=== PATIENT | female | born 1980 | race Caucasian/White ===

== ENCOUNTER 2019-05-19 15:24 | Outpatient (CLI) | payer BC | END 2019-05-19 23:59 | disposition home or self-care (01) | LOC: CARD 15:24 | DX: J45.30 Mild persistent asthma, uncomplicated (principal); J30.9 Allergic rhinitis, unspecified; B07.9 Viral wart, unspecified; L71.9 Rosacea, unspecified; Q82.8 Other specified congenital malformations of skin | CPT/HCPCS: 94060; 94726; 94729 ==

== ENCOUNTER 2019-10-02 07:35 | Inpatient (IN) | payer BC ==
[~2019-10-02] VITALS: Ht 160 cm; Wt 67.0 kg
[~2019-10-02 07:35] MED LIST: [UNRECOGNIZED DRUG - REMARK]
--- NOTE | 2019-10-02 08:23 | NUR ---
LATE ENTRY, PT FROM TRIAGE VIA WHEELCHAIR S/P ABDOMINAL PLASTY ON 09/28, SUDDEN ONSET SOB. PT HAS HX OF ASTHMA AND USED HER INHALLERS AND A BREATHING TREATMENT W/O IMPROVEMENT. RPT RA PULSE OX AT HOME OF 60%. PT PLACED IN GOWN AND ALL MONITORS IN PLACE. PIV EST ABD LABS DRAWN. 02 AT 4L NC WITH SPO2 = 91% RESPIRATIONS 28 AND SHALLOW. POSTERIOR LUNG SOUNDS DECREASED. DR GALVIN AT BEDSIDE. ASSESSMENT REV. AND ORDERS REC'D. NS IV BOLUS 500ML INITIATED AND INFUSING WO W/O DIFFICULTY. AT BEDSIDE, CALL LIGHT W/I REACH.
[2019-10-02] MEDS ORDERED: SODIUM CHLORIDE 0.9%, 500ML IVBOLUS ONE (08:30)
[2019-10-02 08:31] LABS: BASOPHILS # (AUTO) 0.01 x10^3/uL (0-0.1); BASOPHILS % (AUTO) 0 % (0-1); EOSINOPHILS # (AUTO) 0.09 x10^3/uL (0-0.4); EOSINOPHILS % (AUTO) 1 % (1-7); LYMPHOCYTES # (AUTO) 0.79 x10^3/uL (1-3.4); LYMPHOCYTES % (AUTO) 8 % (22-44); MD NO; MEAN CORPUSCULAR HEMOGLOBIN 31.4 pg (27.0-34.8); MEAN CORPUSCULAR HGB CONC 32.8 g/dL (32.4-35.8); MEAN CORPUSCULAR VOLUME 95.5 fL (80-100); MEAN PLATELET VOLUME 7.6 fL (7.4-10.4); MONOCYTES # (AUTO) 0.41 x10^3/uL (0.2-0.8); MONOCYTES % (AUTO) 4 % (2-9); NEUTROPHILS # (AUTO) 9.23 x10^3/uL (1.8-6.8); NEUTROPHILS % (AUTO) 88 % (42-75); PLATELET COUNT 246 x10^3/uL (130-400); RED BLOOD COUNT 4.71 x10^6/uL (3.82-5.3); RED CELL DISTRIBUTION WIDTH 12.7 % (9.6-15.2)
[2019-10-02 08:39] LABS: ALANINE AMINOTRANSFERASE 34 U/L (12-78); ALBUMIN 3.2 g/dL (3.4-5.0); ANION GAP 7 mmol/L (5-15); CALCIUM 8.4 mg/dL (8.5-10.1); CHLORIDE 101 mmol/L (98-107); CREATININE 0.75 mg/dL (0.55-1.02)
[2019-10-02 08:44] LABS: ALKALINE PHOSPHATASE 89 U/L (45-117); BILIRUBIN,TOTAL 0.7 mg/dL (0.2-1.0); TOTAL PROTEIN 7.2 g/dL (6.4-8.2); TROPONIN I 0.047 ng/mL (0.000-0.045)
--- NOTE | 2019-10-02 08:44 | NUR ---
PT OOB TO BEDSIDE COMMODE WITH ASSIST. VOIDED W/O DIFFICULTY AND RTD TO BED. VSS
[2019-10-02] MEDS ORDERED: HYDROcodone/APAP 5/325 TABLET PO ONE (09:00)
[2019-10-02] MEDS ORDERED: CEPH-376 PO (09:05)
[2019-10-02] MEDS ORDERED: ALBU8.5H8 INH (09:05)
[2019-10-02] MEDS ORDERED: ONDA4TAB7 PO (09:05)
[2019-10-02] MEDS ORDERED: LISI-167 PO (09:05)
[2019-10-02] MEDS ORDERED: FLUT1AER INH (09:05)
[2019-10-02] MEDS ORDERED: CYCL-259 PO (09:05)
[2019-10-02] MEDS ORDERED: HYDR-3240 PO (09:05)
[2019-10-02] MEDS ORDERED: GABA300C10 PO (09:05)
[2019-10-02] MEDS ORDERED: HYDROcodone/APAP 5/325 TABLET ONE (09:17)
--- NOTE | 2019-10-02 09:26 | NUR ---
PT RTD FROM CT, VSS, PAIN 6/10 MED NOTED. CALL LIGHT W/I REACH
[2019-10-02] MEDS ORDERED: PIPERACILLIN/TAZO/PMX 3.375GM 50 ML IVPB ONE (09:30)
[2019-10-02] MEDS ORDERED: VANCOMYCIN PER PHARMACY MC ONE (09:30)
[2019-10-02] MEDS ORDERED: SODIUM CHLORIDE 0.9% 1,000ML IVBOLUS ONE (09:30)
[2019-10-02] MEDS ORDERED: morphine SULFATE 10 MG/ML, 1ML IVPush ONE (09:30)
[2019-10-02] MEDS ORDERED: OMNIPAQUE 350 MG/ML, 100ML BOTTLE ONE (09:34)
[2019-10-02] MEDS ORDERED: VANCOMYCIN 1,200 MG in SODIUM CHLORIDE 0.9% 250 ML IV ONE (10:00)
--- NOTE | 2019-10-02 10:15 | NUR ---
DR GALVIN AT BEDSIDE, TEST RESULTS AND PLAN FOR ADMIT DISCUSSED AND QUESTIONS ANSWERED.
--- NOTE | 2019-10-02 10:28 | NUR ---
DR CUADRA AT BEDSIDE.
[2019-10-02] MEDS ORDERED: PIPERACILLIN/TAZO/PMX 3.375GM 50 ML ONE (10:50)
[2019-10-02] MEDS ORDERED: BISACODYL 10 MG SUPP PR PRN (11:00)
[2019-10-02] MEDS ORDERED: DOCUSATE 100 MG CAPSULE PO PRN (11:00)
[2019-10-02] MEDS ORDERED: ENOXAPARIN 40 MG/0.4 ML SQ SCH (11:00)
[2019-10-02] MEDS ORDERED: PROMETHAZINE 25 MG/ML, 1ML IM PRN (11:00)
[2019-10-02] MEDS ORDERED: VANCOMYCIN PER PHARMACY MC PRN (11:00)
[2019-10-02] MEDS ORDERED: PIPERACILLIN/TAZO/PMX 3.375GM 50 ML IV SCH (11:00)
[2019-10-02] MEDS: SODIUM CHLORIDE 0.9% 1,000 ML IV SCH ×2 (11:14→17:09)
[2019-10-02 11:51] LABS: TROPONIN I 0.024 ng/mL (0.000-0.045)
[2019-10-02 11:55] LABS: RAPID INFLUENZA A Negative (Negative); RAPID INFLUENZA B Negative (Negative)
[2019-10-02] MEDS ORDERED: ENOXAPARIN 40 MG/0.4 ML ONE (12:10)
[2019-10-02 14:10] VITALS: BP 110/74
[2019-10-02] MEDS ORDERED: PHARMACOKINETIC CONSULTATION MC ONE (15:00)
[2019-10-02] MEDS ORDERED: PHARMACOKINETIC MONITORING MC PRN (15:00)
[2019-10-02] MEDS: HYDROcodone/APAP 5/325 TABLET PO PRN (15:50)
[2019-10-02] MEDS: GABAPENTIN 300 MG CAPSULE PO SCH ×2 (15:50→21:14)
[2019-10-02] MEDS ORDERED: BUDE10.2 INH (16:37)
[2019-10-02 17:06] LABS: TROPONIN I 0.038 ng/mL (0.000-0.045)
[2019-10-02] MEDS: PIPERACILLIN/TAZO/PMX 3.375GM 50 ML IV SCH (17:09)
[2019-10-02] MEDS: ACETAMINOPHEN 325 MG TABLET PO PRN (17:13)
[2019-10-02 19:28] VITALS: BP 102/68
[2019-10-02] MEDS: ALBUTEROL SULFATE 2.5 MG/3 ML NPPB SCH (19:39)
[2019-10-02] MEDS: BUDESONIDE 0.5 MG/2 ML INHA NPPB SCH (19:39)
[2019-10-02] MEDS: CYCLOBENZAPRINE 10 MG TABLET PO SCH (21:14)
[2019-10-02] MEDS: POLYETHYLENE GLYCOL 17 GM PACKET PO PRN (21:22)
[2019-10-02] MEDS: VANCOMYCIN 1,200 MG in SODIUM CHLORIDE 0.9% 250 ML IV SCH (22:53)
[2019-10-03] MEDS: PIPERACILLIN/TAZO/PMX 3.375GM 50 ML IV SCH ×4 (00:43→18:26)
[2019-10-03 00:48] VITALS: BP 110/74
[2019-10-03] MEDS: ALBUTEROL SULFATE 2.5 MG/3 ML NPPB SCH ×4 (02:19→21:00)
[2019-10-03] MEDS: ACETAMINOPHEN 325 MG TABLET PO PRN (02:47)
[2019-10-03] MEDS: SODIUM CHLORIDE 0.9% 1,000 ML IV SCH ×2 (02:48→08:40)
[2019-10-03 06:33] LABS: BASOPHILS # (AUTO) 0.02 x10^3/uL (0-0.1); BASOPHILS % (AUTO) 0 % (0-1); EOSINOPHILS # (AUTO) 0.41 x10^3/uL (0-0.4); EOSINOPHILS % (AUTO) 7 % (1-7); LYMPHOCYTES # (AUTO) 1.23 x10^3/uL (1-3.4); LYMPHOCYTES % (AUTO) 19 % (22-44); MD NO; MEAN CORPUSCULAR HEMOGLOBIN 31.1 pg (27.0-34.8); MEAN CORPUSCULAR HGB CONC 32.6 g/dL (32.4-35.8); MEAN CORPUSCULAR VOLUME 95.3 fL (80-100); MEAN PLATELET VOLUME 7.4 fL (7.4-10.4); MONOCYTES % (AUTO) 6 % (2-9); NEUTROPHILS # (AUTO) 4.34 x10^3/uL (1.8-6.8); NEUTROPHILS % (AUTO) 68 % (42-75); PLATELET COUNT 217 x10^3/uL (130-400); RED BLOOD COUNT 3.74 x10^6/uL (3.82-5.3); RED CELL DISTRIBUTION WIDTH 13.2 % (9.6-15.2)
[2019-10-03 06:35] LABS: ALBUMIN 2.4 g/dL (3.4-5.0); ANION GAP 5 mmol/L (5-15); CALCIUM 7.9 mg/dL (8.5-10.1); CHLORIDE 113 mmol/L (98-107)
[2019-10-03] MEDS: HYDROcodone/APAP 5/325 TABLET PO PRN ×2 (06:37→19:33)
[2019-10-03 06:44] LABS: ALANINE AMINOTRANSFERASE 23 U/L (12-78); ALKALINE PHOSPHATASE 69 U/L (45-117); BILIRUBIN,TOTAL 0.4 mg/dL (0.2-1.0); CHOL/HDL RATIO 2.6; CHOLESTEROL, TOTAL 122 mg/dL (140-239); CREATININE 0.59 mg/dL (0.55-1.02); HDL CHOL % 39 % (28-40); HDL CHOLESTEROL (DIRECT) 47 mg/dL (40-60); LDL CHOLESTEROL,CALCULATED 64 mg/dL (54-169); LDL/HDL RATIO 1.4 (0.5-3.0); TOTAL PROTEIN 5.8 g/dL (6.4-8.2); TRIGLYCERIDES 53 mg/dL (50-200); VLDL CHOLESTEROL 11 mg/dL (0-25)
[2019-10-03] MEDS: BUDESONIDE 0.5 MG/2 ML INHA NPPB SCH ×2 (07:25→21:00)
[2019-10-03] MEDS: ENOXAPARIN 40 MG/0.4 ML SQ SCH (09:00)
[2019-10-03] MEDS ORDERED: FLUTICASONE/VILANTEROL 100-25MCG/INH INH SCH (09:00)
[2019-10-03] MEDS ORDERED: [UNRECOGNIZED DRUG - OTHER] INH SCH (09:00)
[2019-10-03] MEDS: POLYETHYLENE GLYCOL 17 GM PACKET PO PRN (09:30)
[2019-10-03] MEDS: CYCLOBENZAPRINE 10 MG TABLET PO SCH ×2 (09:31→20:45)
[2019-10-03] MEDS: GABAPENTIN 300 MG CAPSULE PO SCH ×3 (09:31→20:45)
[2019-10-03] MEDS: LISINOPRIL 10 MG TABLET PO SCH (09:32)
[2019-10-03 09:55] VITALS: BP 129/89
[2019-10-03] MEDS: VANCOMYCIN 1,200 MG in SODIUM CHLORIDE 0.9% 250 ML IV SCH ×2 (10:05→23:14)
[2019-10-03] MEDS: ONDANSETRON 2MG/ML, 2ML IVPush PRN (12:34)
[2019-10-03 13:52] VITALS: BP 127/87
[2019-10-03 19:40] VITALS: BP 122/84
[2019-10-04] MEDS: PIPERACILLIN/TAZO/PMX 3.375GM 50 ML IV SCH ×4 (01:39→20:41)
[2019-10-04 01:40] VITALS: BP 121/84
[2019-10-04] MEDS: ALBUTEROL SULFATE 2.5 MG/3 ML NPPB SCH ×4 (03:00→20:09)
[2019-10-04] MEDS: ACETAMINOPHEN 325 MG TABLET PO PRN ×2 (03:52→10:26)
[2019-10-04 06:04] VITALS: BP 124/82
[2019-10-04] MEDS: CYCLOBENZAPRINE 10 MG TABLET PO SCH ×2 (08:02→20:41)
[2019-10-04] MEDS: ENOXAPARIN 40 MG/0.4 ML SQ SCH (08:02)
[2019-10-04] MEDS: GABAPENTIN 300 MG CAPSULE PO SCH ×3 (08:02→21:43)
[2019-10-04] MEDS: LISINOPRIL 10 MG TABLET PO SCH (08:02)
[2019-10-04] MEDS: BUDESONIDE 0.5 MG/2 ML INHA NPPB SCH ×2 (08:23→20:09)
[2019-10-04] MEDS ORDERED: MAGNESIUM HYDROXIDE 8%, 30ML UDC PO PRN (10:00)
[2019-10-04] MEDS: ONDANSETRON 2MG/ML, 2ML IVPush PRN (10:26)
[2019-10-04 10:35] VITALS: BP 121/85
[2019-10-04 10:39] LABS: BASOPHILS # (AUTO) 0.01 x10^3/uL (0-0.1); BASOPHILS % (AUTO) 0 % (0-1); EOSINOPHILS # (AUTO) 0.38 x10^3/uL (0-0.4); EOSINOPHILS % (AUTO) 6 % (1-7); LYMPHOCYTES % (AUTO) 16 % (22-44); MD NO; MEAN CORPUSCULAR HEMOGLOBIN 30.7 pg (27.0-34.8); MEAN CORPUSCULAR HGB CONC 32.8 g/dL (32.4-35.8); MEAN CORPUSCULAR VOLUME 93.6 fL (80-100); MONOCYTES # (AUTO) 0.36 x10^3/uL (0.2-0.8); MONOCYTES % (AUTO) 6 % (2-9); NEUTROPHILS # (AUTO) 4.51 x10^3/uL (1.8-6.8); NEUTROPHILS % (AUTO) 72 % (42-75); PLATELET COUNT 244 x10^3/uL (130-400); RED BLOOD COUNT 3.95 x10^6/uL (3.82-5.3); RED CELL DISTRIBUTION WIDTH 12.9 % (9.6-15.2)
[2019-10-04 10:48] LABS: ANION GAP 5 mmol/L (5-15); CALCIUM 8.5 mg/dL (8.5-10.1); CHLORIDE 112 mmol/L (98-107); CREATININE 0.69 mg/dL (0.55-1.02)
[2019-10-04] MEDS: DOXYCYCLINE 100 MG in DEXTROSE 5% 250 ML IV SCH ×2 (10:58→21:43)
[2019-10-04 13:37] VITALS: BP 126/85
[2019-10-04] MEDS: POLYETHYLENE GLYCOL 17 GM PACKET PO PRN (17:46)
[2019-10-04] MEDS: HYDROcodone/APAP 5/325 TABLET PO PRN (17:46)
[2019-10-04 20:45] VITALS: BP 118/81
[2019-10-05] MEDS: PIPERACILLIN/TAZO/PMX 3.375GM 50 ML IV SCH (01:59)
[2019-10-05 02:03] VITALS: BP 121/83
[2019-10-05] MEDS: ALBUTEROL SULFATE 2.5 MG/3 ML NPPB SCH ×2 (03:00→09:00)
[2019-10-05 05:31] LABS: BASOPHILS # (AUTO) 0.01 x10^3/uL (0-0.1); BASOPHILS % (AUTO) 0 % (0-1); EOSINOPHILS # (AUTO) 0.39 x10^3/uL (0-0.4); EOSINOPHILS % (AUTO) 7 % (1-7); LYMPHOCYTES # (AUTO) 1.15 x10^3/uL (1-3.4); LYMPHOCYTES % (AUTO) 20 % (22-44); MD NO; MEAN CORPUSCULAR HEMOGLOBIN 30.7 pg (27.0-34.8); MEAN CORPUSCULAR HGB CONC 32.6 g/dL (32.4-35.8); MEAN CORPUSCULAR VOLUME 94.4 fL (80-100); MEAN PLATELET VOLUME 7.6 fL (7.4-10.4); MONOCYTES # (AUTO) 0.49 x10^3/uL (0.2-0.8); MONOCYTES % (AUTO) 8 % (2-9); NEUTROPHILS # (AUTO) 3.74 x10^3/uL (1.8-6.8); NEUTROPHILS % (AUTO) 65 % (42-75); PLATELET COUNT 246 x10^3/uL (130-400); RED BLOOD COUNT 3.72 x10^6/uL (3.82-5.3); RED CELL DISTRIBUTION WIDTH 12.9 % (9.6-15.2)
[2019-10-05 05:40] LABS: ANION GAP 4 mmol/L (5-15); CALCIUM 8.6 mg/dL (8.5-10.1); CHLORIDE 110 mmol/L (98-107)
[2019-10-05 05:42] LABS: CREATININE 0.68 mg/dL (0.55-1.02)
[2019-10-05 07:36] VITALS: BP 125/82
[2019-10-05] MEDS: POLYETHYLENE GLYCOL 17 GM PACKET PO PRN (08:37)
[2019-10-05] MEDS: ENOXAPARIN 40 MG/0.4 ML SQ SCH (08:37)
[2019-10-05] MEDS: GABAPENTIN 300 MG CAPSULE PO SCH (08:37)
[2019-10-05] MEDS: LISINOPRIL 10 MG TABLET PO SCH (08:38)
[2019-10-05] MEDS: CYCLOBENZAPRINE 10 MG TABLET PO SCH (08:38)
[2019-10-05] MEDS: BUDESONIDE 0.5 MG/2 ML INHA NPPB SCH (09:00)
[2019-10-05] MEDS ORDERED: AMOXICILLIN/CLAV 875-125MG TABLET PO SCH (09:00)
[2019-10-05] MEDS ORDERED: DOXYCYCLINE 100MG TABLET PO SCH (09:00)
[2019-10-05] MEDS ORDERED: DOXY100T PO (09:47)
[2019-10-05] MEDS ORDERED: TIOT18CA INH (09:47)
[2019-10-05] MEDS ORDERED: AMOX1TAB12 PO (09:47)
== END 2019-10-05 13:01 | disposition home or self-care (01) | DRG 871 ==
LOC: ED 09:52 → SUATTDRO 10:19 → EDIP 10:57 → 5SO 14:02
PROVIDERS: ADMIT Internal Medicine; ATTEND Internal Medicine
DX: A41.9 Sepsis, unspecified organism (principal); J96.01 Acute respiratory failure with hypoxia; J15.20 Pneumonia due to staphylococcus, unspecified; I24.8 Other forms of acute ischemic heart disease; D63.8 Anemia in other chronic diseases classified elsewhere; E83.39 Other disorders of phosphorus metabolism; I10 Essential (primary) hypertension; J45.20 Mild intermittent asthma, uncomplicated; Z82.49 Family history of ischemic heart disease and other diseases of the circulatory system
CPT/HCPCS: 36415; 84145; 87400; 99285; J7613; J7626; 71045; 71275; 80048; 80053; 80061; 83605; 83735; 83880; 84100; 84443; 84484; 85025; 85730; 87040; 93005; 93306; 93970; 94640; 94667; 94668; G0378; J1650; J2405; J2543; J3370; J7060; Q9967; J7030; J7040; J7050

== ENCOUNTER → 2019-12-23 | Outpatient (CLI) | payer BC ==
[~2019-12-23] MED LIST changes: +ALBU8.5H8 INH; +AMOX1TAB12 PO; +BUDE10.2 INH; +CEPH-376 PO; +CYCL-259 PO; +DOXY100T PO; +FLUT1AER INH; +GABA300C10 PO; +HYDR-3240 PO; +LISI-167 PO; +ONDA4TAB7 PO; +TIOT18CA INH
== END | disposition home or self-care (01) ==
LOC: RAD 10:17
PROVIDERS: ATTEND Family Medicine
DX: R05 Cough (principal)
CPT/HCPCS: 71046

== ENCOUNTER 2021-06-18 12:45 | Emergency (ER) | payer BC ==
[~2021-06-18] VITALS: Ht 160 cm; Wt 66.6 kg
[~2021-06-18 12:45] MED LIST changes: -CYCL-259 PO; +CYCL10TA2 PO; +HYDR-2214 PO; -HYDR-3240 PO
[2021-06-18 12:59] VITALS: BP 140/93
[2021-06-18] MEDS ORDERED: LIDOCAINE-MPF 1%, 5ML ONE (13:45)
[2021-06-18] MEDS ORDERED: LIDOCAINE-MPF 1%, 5ML INFIL ONE (14:00)
[2021-06-18] MEDS ORDERED: CEFAZOLIN 1,000 MG IM ONE (14:30)
[2021-06-18] MEDS ORDERED: CEFAZOLIN 1,000 MG ONE (15:02)
== END 2021-06-18 15:13 | disposition home or self-care (01) ==
LOC: ED 13:47
DX: S92.414B Nondisplaced fracture of proximal phalanx of right great toe, initial encounter for open fracture (principal); X58.XXXA Exposure to other specified factors, initial encounter; Y93.89 Activity, other specified; Y92.89 Other specified places as the place of occurrence of the external cause; Y99.8 Other external cause status
CPT/HCPCS: 12001; 96372; 99283; J0690